=== PATIENT | male | born 1985 | race Two or more races ===

== ENCOUNTER 2018-12-24 17:46 | Emergency (ER) | payer BC, MEDICAID ==
--- NOTE | 2018-12-24 18:29 | CT ---
[id number] CT/CT Head WO IV EXAM: CT Head WO IV CLINICAL DATA: SEIZURE COMPARISON: NO PREVIOUS SIMILAR EXAM IS AVAILABLE FOR COMPARISON. FINDINGS: There is no mass or mass effect. There is no hemorrhage or hydrocephalus. There are no extra-axial fluid collections. There are no sites of abnormal attenuation. IMPRESSION: NO PLAIN CT EVIDENCE OF ACUTE INTRACRANIAL PROCESS. Bruno Valenzuela MD 12/24/18 2650 Thank you for allowing us to participate in the care of your patient.
--- NOTE | 2018-12-24 18:32 | EDM.PDOC ---
ED HPI GENERAL MEDICAL PROBLEM - General Source of Information: Reports: Patient, EMS History Limitations: Reports: No Limitations - History of Present Illness Onset: Today, Sudden Duration: Improving Location: Reports: Generalized <StephenJoão Breaux - Last Filed: 12/24/18 18:27> <Chivo Knight - Last Filed: 12/25/18 04:35> - General Chief Complaint: Neurological Problem Stated Complaint: seizure Time Seen by Provider: 12/24/18 18:16 - History of Present Illness INITIAL COMMENTS - FREE TEXT/NARRATIVE: Patient arrives after seizure while his mom was driving. It was reportedly over 5 minutes in duration. Post ictal afterwards. History of siezure activity in the past, last seizure being over a year ago. He stopped taking his Keppra at that time. He states he is tired at this time, but has no other complaints. Denies headache, blurry vision, nausea or vomiting. (João Mitchell) ED ROS GENERAL - Review of Systems Review Of Systems: See Below Constitutional: Reports: No Symptoms HEENT: Reports: No Symptoms Respiratory: Reports: No Symptoms Cardiovascular: Reports: No Symptoms Endocrine: Reports: No Symptoms GI/Abdominal: Reports: No Symptoms : Reports: No Symptoms Musculoskeletal: Reports: No Symptoms Skin: Reports: No Symptoms Neurological: Reports: Other (reports he is tired) Psychiatric: Reports: No Symptoms Hematologic/Lymphatic: Reports: No Symptoms Immunologic: Reports: No Symptoms <João Mitchell - Last Filed: 12/24/18 18:27> - Physical Exam Exam: See Below Exam Limited By: No Limitations General Appearance: Alert, WD/WN, No Apparent Distress Eye Exam: Bilateral Eye: EOMI, Normal Inspection, PERRL Ears: Normal TMs Nose: Normal Inspection, Normal Mucosa, No Blood Throat/Mouth: Normal Inspection, Normal Lips, Normal Teeth, Normal Gums, Normal Oropharynx, Normal Voice, No Airway Compromise Head Exam: Atraumatic, Normocephalic Neck: Normal Inspection, Supple, Non-Tender, Full Range of Motion Respiratory/Chest: No Respiratory Distress, Lungs Clear, Normal Breath Sounds, No Accessory Muscle Use, Chest Non-Tender Cardiovascular: Normal Peripheral Pulses, Regular Rate, Rhythm, No Edema, No Gallop, No JVD, No Murmur, No Rub GI/Abdominal: Normal Bowel Sounds, Soft, Non-Tender, No Organomegaly, No Distention, No Abnormal Bruit, No Mass Neuro Exam (Abbreviated): Alert, Oriented, CN II-XII Intact, Normal Cognition, Normal Gait, Normal Reflexes, No Motor/Sensory Deficits Back Exam: Normal Inspection, Full Range of Motion, NT Extremities: Normal Inspection, Normal Range of Motion, Non-Tender, No Pedal Edema, Normal Capillary Refill Psychiatric: Normal Affect, Normal Mood Skin Exam: Warm, Dry, Intact, Normal Color, No Rash <StephenJoão M - Last Filed: 12/24/18 18:27> Course <StephenJoão M - Last Filed: 12/24/18 18:27> <AntoniaChivo W - Last Filed: 12/25/18 04:35> - Vital Signs Last Recorded V/S: Last Vital Signs Temp 37.1 C 12/24/18 17:47 Pulse 103 H 12/24/18 19:10 Resp 16 12/24/18 19:48 BP 133/82 12/24/18 19:48 Pulse Ox 95 12/24/18 19:48 - Orders/Labs/Meds Labs: Laboratory Tests 12/24/18 12/24/18 12/24/18 Range/Units 18:47 18:47 19:10 WBC 12.3 H (4.0-10.0) x10^3/uL RBC 4.59 (4.5-6.0) x10^6/uL Hgb 14.0 (14.0-18.0) g/dL Hct 42.2 (40.0-52.0) % MCV 91.9 (78.0-93.0) fL MCH 30.5 (26.0-32.0) pg MCHC 33.2 (32.0-36.0) g/dL RDW Coeff of Candelario 12.9 (10.0-15.0) % Plt Count 296 (130-400) x10^3/uL Neut % (Auto) 84.4 H (50.0-80.0) % Lymph % (Auto) 11.2 L (25.0-50.0) % [place] % (Auto) 3.6 (2.0-11.0) % Eos % (Auto) 0.7 (0.0-4.0) % Baso % (Auto) 0.1 L (0.2-1.2) % Sodium 142 (136-145) mmol/L Potassium 3.9 (3.5-5.1) mmol/L Chloride 105 (98-107) mmol/L Carbon Dioxide 28 (21-32) mmol/L Anion Gap 12.9 (10-20) mmol/L BUN 9 (7-18) mg/dL Creatinine 1.0 (0.70-1.30) mg/dL Est Cr Clr Drug Dosing TNP Estimated GFR (MDRD) > 60 Glucose 104 (74-106) mg/dL Calcium 8.8 (8.5-10.1) mg/dL Corrected Calcium 9.28 (8.5-10.1) mg/dL Phosphorus 1.6 L (2.6-4.7) mg/dL Magnesium 1.9 (1.8-2.4) mg/dL Total Bilirubin 0.6 (0.2-1.0) mg/dL AST 23 (15-37) U/L ALT 50 (16-63) U/L Alkaline Phosphatase 103 (46-116) U/L C-Reactive Protein 1.4 H (<=0.9) mg/dL Total Protein 7.8 (6.4-8.2) g/dL Albumin 3.4 (3.4-5.0) g/dL Globulin 4.4 Albumin/Globulin Ratio 0.77 Urine Color Yellow (YELLOW) Urine Appearance Clear (CLEAR) Urine pH 7.0 (5.0-8.0) Ur Specific [place] 1.020 Urine Protein Negative (NEGATIVE) mg/dL Urine Glucose (UA) Negative (NEGATIVE) mg/dL Urine Ketones Negative (NEGATIVE) mg/dL Urine Occult Blood Negative (NEGATIVE) Urine Nitrite Negative (NEGATIVE) Urine Bilirubin Negative (NEGATIVE) Urine Urobilinogen 0.2 (0.2) EU/dL Ur Leukocyte Esterase Negative (NEGATIVE) Urine RBC Not seen (NOT SEEN) /HPF Urine WBC 0-5 (NOT SEEN) /HPF Ur Squamous Epith Cells Rare (NEGATIVE) /HPF Urine Bacteria Not seen (NEGATIVE) /HPF Urine Mucus Not seen (NEGATIVE) /LPF Urine Opiates Screen (NEAGTIVE) Ur Buprenorphine Scrn (NEGATIVE) Ur Oxycodone Screen (NEGATIVE) Urine Methadone Screen (NEGATIVE) Ur Barbiturates Screen (NEGATIVE) Ur Tricyclics Screen (NEGATIVE) Ur Amphetamine Screen (NEGATIVE) U Methamphetamines Scrn (NEGATIVE) Urine MDMA Screen (NEGATIVE) U Benzodiazepines Scrn (NEGATIVE) U Cocaine Metab Screen (NEGATIVE) U Marijuana (THC) Screen (NEGATIVE) 12/24/18 Range/Units 19:10 WBC (4.0-10.0) x10^3/uL RBC (4.5-6.0) x10^6/uL Hgb (14.0-18.0) g/dL Hct (40.0-52.0) % MCV (78.0-93.0) fL MCH (26.0-32.0) pg MCHC (32.0-36.0) g/dL RDW Coeff of [place]el[place] (10.0-15.0) % Plt Count (130-400) x10^3/uL Neut % (Auto) (50.0-80.0) % Lymph % (Auto) (25.0-50.0) % [place] % (Auto) (2.0-11.0) % Eos % (Auto) (0.0-4.0) % Baso % (Auto) (0.2-1.2) % Sodium (136-145) mmol/L Potassium (3.5-5.1) mmol/L Chloride (98-107) mmol/L Carbon Dioxide (21-32) mmol/L Anion Gap (10-20) mmol/L BUN (7-18) mg/dL Creatinine (0.70-1.30) mg/dL Est Cr Clr Drug Dosing Estimated GFR (MDRD) Glucose (74-106) mg/dL Calcium (8.5-10.1) mg/dL Corrected Calcium (8.5-10.1) mg/dL Phosphorus (2.6-4.7) mg/dL Magnesium (1.8-2.4) mg/dL Total Bilirubin (0.2-1.0) mg/dL AST (15-37) U/L ALT (16-63) U/L Alkaline Phosphatase (46-116) U/L C-Reactive Protein (<=0.9) mg/dL Total Protein (6.4-8.2) g/dL Albumin (3.4-5.0) g/dL Globulin Albumin/Globulin Ratio Urine Color (YELLOW) Urine Appearance (CLEAR) Urine pH (5.0-8.0) Ur Specific [place] Urine Protein (NEGATIVE) mg/dL Urine Glucose (UA) (NEGATIVE) mg/dL Urine Ketones (NEGATIVE) mg/dL Urine Occult Blood (NEGATIVE) Urine Nitrite (NEGATIVE) Urine Bilirubin (NEGATIVE) Urine Urobilinogen (0.2) EU/dL Ur Leukocyte Esterase (NEGATIVE) Urine RBC (NOT SEEN) /HPF Urine WBC (NOT SEEN) /HPF Ur Squamous Epith Cells (NEGATIVE) /HPF Urine Bacteria (NEGATIVE) /HPF Urine Mucus (NEGATIVE) /LPF Urine Opiates Screen Negative (NEAGTIVE) Ur Buprenorphine Scrn Negative (NEGATIVE) Ur Oxycodone Screen Negative (NEGATIVE) Urine Methadone Screen Negative (NEGATIVE) Ur Barbiturates Screen Negative (NEGATIVE) Ur Tricyclics Screen Negative (NEGATIVE) Ur Amphetamine Screen Negative (NEGATIVE) U Methamphetamines Scrn Negative (NEGATIVE) Urine MDMA Screen Negative (NEGATIVE) U Benzodiazepines Scrn Negative (NEGATIVE) U Cocaine Metab Screen Negative (NEGATIVE) U Marijuana (THC) Screen Negative (NEGATIVE) Meds: Medications Discontinued Medications Generic Name Dose Route Start Last Admin Trade Name Stanford PRN Reason Stop Dose Admin Diazepam 5 mg 12/24/18 19:32 12/24/18 19:40 Valium IVPUSH 12/24/18 19:33 5 mg STAT ONE Administration - Radiology Interpretation Free Text/Narrative:: CT of head ordered (João Mitchell) - Re-Assessments/Exams Free Text/Narrative Re-Assessment/Exam: Assumed care of patient from JAQUAN Tesfaye. Please refer to his documentation regarding physical exam, ROS, and HPI. Pt. has had no further seizure activity. Family is very anxious to be discharged due to the impending snow storm. He had no further seizure activity during his stay. He was given 5mg valium IV and was started on Keppra 500mg PO BID, with his first dose given at discharge. He remained stable in my care here in ER. (Chivo Knight) Departure <João Mitchell - Last Filed: 12/24/18 18:27> - Departure Time of Disposition: 20:30 <Chivo Knight - Last Filed: 12/25/18 04:35> - Departure Disposition: Home, Self-Care 01 Clinical Impression: Seizure - Discharge Information Prescriptions: levETIRAcetam [Keppra] 500 mg PO BID #4 tablet Instructions: Seizure, Adult Referrals: PCP,None [Primary Care Provider] - Forms: ED Department Discharge Additional Instructions: Follow-up with your PCP within the next week. You should have an EEG at minimum for continued seizure activity. Return to ER if you have seizure that lasts longer than 30 min. Restart Keppra 500mg 1 cap twice daily to start. <João Mitchell - Last Filed: 12/24/18 18:27> <Chivo Knight - Last Filed: 12/25/18 04:35> - Assessment/Plan Plan: Again, he does have a seizure history. He states that his PCP in [place] stopped his Keppra, so we will restart this. He will need to follow-up with neurology and will require an EEG likely in the near future. Follow-up with your PCP within the next week. Return to ER if you have seizure that lasts longer than 30 min. Restart Keppra 500mg 1 cap twice daily to start. (Chivo Knight)
[2018-12-24 19:14] LABS: CHLORIDE,CL 105 mmol/L (98-107); SODIUM,NA 142 mmol/L (136-145)
[2018-12-24 19:15] LABS: ANION GAP 12.9 mmol/L (10-20)
[2018-12-24] MEDS: diazePAM 5 MG/ML MDV IVPUSH ONE (19:40)
[2018-12-24] MEDS ORDERED: levETIRAcetam 500 MG Tab ONE (19:57)
== END 2018-12-24 19:58 | disposition home or self-care (01) ==
LOC: VM.ED 17:46
DX: R56.9 Unspecified convulsions (principal)
CPT/HCPCS: 36415; 70450; 80053; 80305; 81001; 83735; 84100; 85025; 86140; 96374; 99285; J3360; A9270-GY